=== PATIENT | female | born 1995 | race Two or more races ===

== ENCOUNTER 2020-12-30 01:08 | Emergency (ER) | payer OTHER ==
[~2020-12-30] VITALS: Ht 165.1 cm; Wt 113.0 kg
[2020-12-30 01:24] VITALS: BP 141/76
== END 2020-12-30 01:32 | disposition left against medical advice (07) ==
LOC: ER 01:08
DX: R10.9 Unspecified abdominal pain (principal); Z53.21 Procedure and treatment not carried out due to patient leaving prior to being seen by health care provider
CPT/HCPCS: 81025